=== PATIENT | male | born 1960 | race Two or more races ===

== ENCOUNTER 2022-10-06 21:06 | Emergency (ER) | payer OTHER ==
[~2022-10-06] VITALS: Ht 170.2 cm; Wt 77.2 kg
--- NOTE | 2022-10-06 22:23 | NUR ---
MOVE SHEET SUBMITTED.
[2022-10-06] MEDS ORDERED: IV NS 0.9% 500 ML BAG IV ONE (22:30)
[2022-10-06 22:40] LABS: BASOPHILS # (AUTO) 0.1 K/uL (0.0-0.2); BASOPHILS % (AUTO) 1.3 % (0.0-2.0); EOSINOPHILS % (AUTO) 3.1 % (0.0-6.0); HEMATOCRIT 26 % (39-51); HEMOGLOBIN 8.9 g/dL (13.5-17.5); LYMPHOCYTES # (AUTO) 0.6 K/uL (0.8-4.8); LYMPHOCYTES % (AUTO) 13.7 % (20.0-44.0); MEAN CORPUSCULAR HGB CONC 35 g/dl (31.0-36.0); MEAN CORPUSCULAR VOLUME 98 fL (80-96); MONOCYTES # (AUTO) 0.5 K/uL (0.1-1.30); MONOCYTES % (AUTO) 11.3 % (2.0-12.0); NEUTROPHILS # (AUTO) 3.3 K/uL (1.8-8.9); NEUTROPHILS % (AUTO) 70.6 % (43.0-81.0); PLATELET COUNT (AUTO) 121 K/uL (150-450); RED BLOOD CELL COUNT(AUTO) 2.62 MIL/uL (4.5-6.0); WHITE BLOOD COUNT (AUTO) 4.7 K/uL (4.3-11.0)
--- NOTE | 2022-10-06 22:43 | NUR ---
COVID SWAB DONE AND SENT TO LAB
[2022-10-06 23:00] LABS: CARBON DIOXIDE 29 mmol/L (21-32); CHLORIDE 100 mmol/L (98-107); CREATININE 0.9 mg/dL (0.6-1.3); GLUCOSE 152 mg/dL (74-106); POTASSIUM 4.3 mmol/L (3.5-5.1); SODIUM SERUM 135 mmol/L (136-145); UREA NITROGEN, BLOOD 20 mg/dL (7-18)
[2022-10-06 23:05] LABS: ALANINE AMINOTRANSFERASE 28 U/L (12-78); ALBUMIN 2.9 g/dL (3.4-5.0); ALKALINE PHOSPHATASE 125 U/L (46-116); ASPARTATE AMINOTRANSFERASE 95 U/L (15-37); BILIRUBIN,DIRECT 0.5 mg/dL (0.0-0.2); BILIRUBIN,TOTAL 1.8 mg/dL (0.2-1.0); LIPASE 97 U/L (73-393); TOTAL PROTEIN, SERUM 6.5 g/dL (6.4-8.2)
[2022-10-07 00:25] LABS: BILIRUBIN,URINE NEGATIVE (NEGATIVE); COLOR,URINE YELLOW (YELLOW); LEUKOCYTE ESTERASE ,URINE TRACE (NEGATIVE); NITRITE, URINE NEGATIVE (NEGATIVE); PROTEIN,URINE NEGATIVE (NEGATIVE); UGLUCOSE NEGATIVE (NEGATIVE); UROBILINOGEN,URINE 0.2 EU/dL (0.2)
[2022-10-07 00:31] LABS: BACTERIA,URINE Rare /HPF (None Seen); SQUAMOUS EPITHELIAL CELL,UR Few /HPF (None Seen); WBC,URINE 0-2 /HPF (0-3)
--- NOTE | 2022-10-07 01:38 | NUR ---
clinicals faxed to [facility]
--- NOTE | 2022-10-07 04:56 | NUR ---
PT IS ACCEPTED AT [facility] UNDER THE CARE OF DR. JOY. CALL [phone] FOR REPORT. LOOK FOR GAMING DEALER.
--- NOTE | 2022-10-07 05:22 | NUR ---
[facility] CALLED FOR BLS [facility] JORDY DOMINGUEZ 1 HOUR
--- NOTE | 2022-10-07 08:12 | NUR ---
PICKED UP BY [facility]
[2022-10-07 08:13] VITALS: BP 125/71
== END 2022-10-07 08:13 | disposition home or self-care (01) ==
LOC: ER 21:31
DX: K74.60 Unspecified cirrhosis of liver (principal); R10.9 Unspecified abdominal pain; E11.9 Type 2 diabetes mellitus without complications; Z98.890 Other specified postprocedural states; Z20.822 Contact with and (suspected) exposure to COVID-19
CPT/HCPCS: 99285; 74176; 96360; 71045; 87426; 93005; 85025; 80048; 87040 ×2; 83605; 83690; 80076; 36415 ×2; 84484 ×2; 85730; 80307; 81001; J7040; C9803